=== PATIENT | female | born 1990 | race Hispanic/Latino ===

== ENCOUNTER → 2018-09-24 | Outpatient (CLI) | payer OTHER ==
[~2018-09-24] MED LIST: GADOBENATE DIMEGLUMINE 0 ML IV ONE; SODIUM CHLORIDE 0.9% 50ML 0 ML ONE
== END ==
LOC: MRI 07:35
PROVIDERS: ATTEND Obstetrics & Gynecology
DX: N91.2 Amenorrhea, unspecified (principal); N64.3 Galactorrhea not associated with childbirth
CPT/HCPCS: 81025